=== PATIENT | male | born 1995 | race Caucasian/White ===

== ENCOUNTER 2016-07-24 19:44 | Emergency (ER) | payer SELFPAY ==
[~2016-07-24] VITALS: Ht 167.6 cm; Wt 62.0 kg
[2016-07-24 19:48] VITALS: Ht 167.6 cm; Wt 62.0 kg
[2016-07-24] MEDS ORDERED: LORAZEPAM 0.5 MG TAB PO ONE ×2 (20:30→22:30)
[2016-07-24 20:49] LABS: URINE BLOOD (Dip) POC Negative (NEGATIVE)
[2016-07-24 21:00] LABS: ADD SCAN DIFF NO
[2016-07-24 21:03] LABS: BASOPHIL # 0.1 10^3/ul (0.0-0.1); BASOPHILS % 0.6 % (0.0-2.0); EOSINOPHILS # 0.2 10^3/ul (0.0-0.5); EOSINOPHILS % 2.6 % (0.0-7.0); HEMOGLOBIN 16.3 g/dl (14.0-18.0); LYMPHOCYTES # 2.8 10^3/ul (0.8-2.9); LYMPHOCYTES % 36.7 % (15.0-51.0); MEAN CORPUSCULAR HEMOGLOBIN 30.5 pg (29.0-33.0); MEAN CORPUSCULAR VOLUME 89.9 fl (82.0-101.0); MEAN PLATELET VOLUME 11.7 fl (7.4-10.4); MONOCYTE # 0.5 10^3/ul (0.3-0.9); MONOCYTES % 6.6 % (0.0-11.0); NEUTROPHIL # 4.1 10^3/ul (1.6-7.5); NEUTROPHILS % 53.1 % (39.0-77.0); PLATELET COUNT 241 10^3/UL (140-415); RED BLOOD COUNT 5.34 10^6/ul (4.70-6.10); WHITE BLOOD COUNT 7.7 10^3/ul (4.8-10.8)
[2016-07-24 21:12] LABS: CHLORIDE 99 mmol/L (97-110); POTASSIUM 3.6 mmol/L (3.5-5.1); SODIUM 141 mmol/L (135-144)
[2016-07-24 21:13] LABS: INR 1.02; PROTIME 13.4 Sec (12.2-14.2)
[2016-07-24 21:14] LABS: CREATININE 0.78 mg/dl (0.61-1.24); PARTIAL THROMBOPLASTIN TIME 30.2 Sec (25.0-35.0)
[2016-07-24 21:15] LABS: ANION GAP 18 (8-16); BLOOD UREA NITROGEN 15 mg/dl (7-20); CARBON DIOXIDE 28 mmol/L (21-31); GLUCOSE 111 mg/dl (70-220)
[2016-07-24 21:29] LABS: TROPONIN-I < 0.012 ng/ml (0.00-0.12)
--- NOTE | 2016-07-24 22:15 | RADRPT ---
PROCEDURE: XR Chest AP portable CLINICAL INDICATION: Chest pain TECHNIQUE: An AP portable radiograph of the chest was submitted. COMPARISON: None. FINDINGS: Support Hardware: None Cardiovascular: The cardiovascular silhouette appears unremarkable. Lung Judge: The lung judge appear clear with no nodule, alveolar infiltrate, or interstitial promi nence evident. Pleural Spaces: No pneumothorax or pleural effusion is identified. Osseous Structures: The osseous structures appear intact. Soft Tissues: The soft tissues appear unremarkable. IMPRESSION: Unremarkable portable chest. Physician Klaus Date Time Electronically viewed and signed by Abhinav Spence Physician on 07/24/2016 22:15 /
[2016-07-24] MEDS ORDERED: LIDOCAINE/MYLANTA 40 ML BTL PO ONE (22:30)
[2016-07-24 22:51] VITALS: BP 126/78; PULSE 100; RESP 16
--- NOTE | 2016-07-26 07:59 | ERD ---
ER Documentation Chief Complaint Date/Time DATE: 07/26/16 TIME: 07:47 Chief Complaint chest pain since this morning HPI This is a 21 year old male who presents to ED with neck tightness and anterior chest pain x 1 week. Patient states he has intermittent stabbing type pain to left sided sternal wall for the past week. He states pain is worse with lying down and is relieved by sitting up and standing. Pain is reproducible with palpation of sternal wall. Denies heart palpitations, chest pressure/tightness , cough, shortness of breath, difficulty breathing, weakness or fatigue. No nausea, vomiting, abdominal pain, flank pain or back pain. No jaw pain or arm numbness/tingling. No cough or fever. Denies ever having this fournier before. Does not know what initiated pain. Denies illegal drug use. ROS All systems reviewed and are negative except as per history of present illness. Allergies Allergies: Coded Allergies: No Known Allergy (Unverified , 01/31/14) PMhx/Soc Medical and Surgical Hx: pt denies Medical Hx, pt denies Surgical Hx History of Surgery: No Anesthesia Reaction: No Hx Neurological Disorder: No Hx Respiratory Disorders: No Hx Cardiac Disorders: No Hx Psychiatric Problems: No Hx Miscellaneous Medical Probl: No Hx Alcohol Use: Yes Hx Substance Use: No Hx Tobacco Use: No Smoking Status: Current every day smoker Physical Exam Vitals Vital Signs Date Time Temp Pulse Resp B/P Pulse Ox O2 Delivery O2 Flow Rate FiO2 07/24/16 22:51 100 16 126/78 100 Room Air 07/24/16 19:48 98.2 129 20 124/76 97 Physical Exam Const: NAD, alert Head: Atraumatic Eyes: Normal Conjunctiva ENT: Normal External Ears, Nose and Mouth. Neck: Full range of motion..~ No meningismus. Resp: Clear to auscultation bilaterally. No wheezing, rhonchi or crackles. Cardio: Regular rate and rhythm, no murmurs Abd: Soft, non tender, non distended. Normal bowel sounds Skin: No petechiae or rashes Back: No midline or flank tenderness Ext: No cyanosis, or edema Neur: Awake and alert Psych: Normal Mood and Affect Result Diagram: 07/24/16204907/24/162049 Results 24 hrs Laboratory Tests Test 07/24/16 20:49 07/24/16 20:50 Bedside Urine pH (LAB) 7.0 Bedside Urine Protein (LAB) Negative Bedside Urine Glucose (UA) Negative Bedside Urine Ketones (LAB) Negative Bedside Urine Blood Negative Bedside Urine Nitrite (LAB) Negative Bedside Urine Leukocyte Esterase (L Negative White Blood Count 7.710^3/ul Red Blood Count 5.3410^6/ul Hemoglobin 16.3g/dl Hematocrit 48.0% Mean Corpuscular Volume 89.9fl Mean Corpuscular Hemoglobin 30.5pg Mean Corpuscular Hemoglobin Concent 34.0g/dl Red Cell Distribution Width 12.0% Platelet Count 21752^3/UL Mean Platelet Volume 11.7fl Neutrophils % 53.1% Lymphocytes % 36.7% Monocytes % 6.6% Eosinophils % 2.6% Basophils % 0.6% Nucleated Red Blood Cells % 0.0/100WBC Neutrophils # 4.110^3/ul Lymphocytes # 2.810^3/ul Monocytes # 0.510^3/ul Eosinophils # 0.210^3/ul Basophils # 0.110^3/ul Nucleated Red Blood Cells # 0.010^3/ul Prothrombin Time 13.4Sec Prothrombin Time Ratio 1.0 INR International Normalized Ratio 1.02 Activated Partial Thromboplast Time 30.2Sec Sodium Level 141mmol/L Potassium Level 3.6mmol/L Chloride Level 99mmol/L Carbon Dioxide Level 28mmol/L Anion Gap 18 Blood Urea Nitrogen 15mg/dl Creatinine 0.78mg/dl Glucose Level 111mg/dl Calcium Level 10.0mg/dl Troponin I < 0.012ng/ml Current Medications Medications (Trade) Dose Ordered Sig/Nathalia Route PRN Reason Start Time Stop Time Status Last Admin Dose Admin Lorazepam (Ativan) 0.5 mg ONCE ONCE PO 07/24/16 20:30 07/24/16 20:31 DC 07/24/16 20:38 Lorazepam (Ativan) 0.5 mg ONCE ONCE PO 07/24/16 22:30 07/24/16 22:31 DC 07/24/16 22:43 Miscellaneous Medication (Gi Cocktail (2)) 40 ml ONCE ONCE PO 07/24/16 22:30 07/24/16 22:31 DC 07/24/16 22:43 Procedures/MDM Patient: CARLOS ARREGUIN : 1995 Age: 21 Sex: M MR #: [id number] [facility] #: [id number] DOS: 07/24/162020 Ordering MD: BROOKE PARKS NP [facility] Room/Bed: PROCEDURE: XR Chest AP portable CLINICAL INDICATION: Chest pain TECHNIQUE: An AP portable radiograph of the chest was submitted. COMPARISON: None. FINDINGS: Support Hardware: None Cardiovascular: The cardiovascular silhouette appears unremarkable. Lung Brito: The lung brito appear clear with no nodule, alveolar infiltrate, or interstitial prominence evident. Pleural Spaces: No pneumothorax or pleural effusion is identified. Osseous Structures: The osseous structures appear intact. Soft Tissues: The soft tissues appear unremarkable. IMPRESSION: Unremarkable portable chest. MDM: 21 year old male presents to ED with neck tightness and left sided anterior chest wall pain. Chest pain is reproducible to palpation. Normal lung and heart sounds on physical exam. Physical exam is unremarkable. Patient is calm and cooperative throughout ED visit. Labs drawn per chief of staff. Patient given Ativan 0.5mg po. Labs are unremarkable. Troponin negative. No anemia or electrolyte imbalance. CXR reviewed by radiologist as unremarkable. EKG reviewed by Norah Coto as NSR. No ST elevation. Upon reassessment, patient states chest pain has completely resolved and neck tightness has improved however not resolved completely. Patient given another dose of Ativan 0.5mg po and gi cocktail. Patient remains alert and hemodynamically stable. No s/s respiratory distress. No cough or fever. No difficulty swallowing or drooling. Patient is talking in complete sentences. Low suspicion for acute NE, pneumothorax, pneumonia or pleural effusion. Diagnosis is likely chest pain, musculoskeletal. Patient is appropriate for outpatient management and instructed to return to ED for any new or worsening symptoms. Patient verbalizes understanding. All questions answered at discharge. Departure Diagnosis: Primary Impression: Chest pain Additional Impression: Anxiety Condition: Stable Patient Instructions: Anxiety Reaction, Chest Pain, Uncertain Cause Referrals: COMMUNITY CLINICS YOU HAVE RECEIVED A MEDICAL SCREENING EXAM AND THE RESULTS INDICATE THAT YOU DO NOT HAVE A CONDITION THAT REQUIRES URGENT TREATMENT IN THE EMERGENCY DEPARTMENT. FURTHER EVALUATION AND TREATMENT OF YOUR CONDITION CAN WAIT UNTIL YOU ARE SEEN IN YOUR DOCTORS OFFICE WITHIN THE NEXT 1-2 DAYS. IT IS YOUR RESPONSIBILITY TO MAKE AN APPOINTMENT FOR FOLOW-UP CARE. IF YOU HAVE A PRIMARY DOCTOR --you should call your primary doctor and schedule an appointment IF YOU DO NOT HAVE A PRIMARY DOCTOR YOU CAN CALL OUR PHYSICIAN REFERRAL HOTLINE AT IF YOU CAN NOT AFFORD TO SEE A PHYSICIAN YOU CAN CHOSE FROM THE FOLLOWING [facility] [address] [facility] [address] [facility] [address] [facility] [address] [facility] [address] [facility]. [facility] [address] [facility] YOU HAVE RECEIVED A MEDICAL SCREENING EXAM AND THE RESULTS INDICATE THAT YOU DO NOT HAVE A CONDITION THAT REQUIRES URGENT TREATMENT IN THE EMERGENCY DEPARTMENT. FURTHER EVALUATION AND TREATMENT OF YOUR CONDITION CAN WAIT UNTIL YOU ARE SEEN IN YOUR DOCTORS OFFICE WITHIN THE NEXT 1-2 DAYS. IT IS YOUR RESPONSIBILITY TO MAKE AN APPOINTMENT FOR FOLOW-UP CARE. IF YOU HAVE A PRIMARY DOCTOR --you should call your primary doctor and schedule and appointment IF YOU DO NOT HAVE A PRIMARY DOCTOR YOU CAN CALL OUR PHYSICIAN REFERRAL HOTLINE AT . IF YOU CAN NOT AFFORD TO SEE A PHYSICIAN YOU CAN CHOSE FROM THE FOLLOWING [facility]: [facility] [address] [place] [address] [facility] [address] [place] [address] [facility] [address] [place] [address] Additional Instructions: Return to ED for any high fever, chest pain, difficulty breathing, shortness breath, wheezing, vomiting, diarrhea, abdominal pain or any new or worsening symptoms. Call your primary care doctor TOMORROW for an appointment during the next 2-3 days.See the doctor sooner or return here if your condition worsens before your appointment time. BROOKE PARKS NP Jul 26, 2016 07:58
== END 2016-07-24 22:51 | disposition home or self-care (01) ==
LOC: FTE 19:44
DX: R07.9 Chest pain, unspecified (principal); F41.9 Anxiety disorder, unspecified; F17.210 Nicotine dependence, cigarettes, uncomplicated
CPT/HCPCS: 36415; 71010; 80048; 81003; 84484; 85025; 85610; 85730; 93005

== ENCOUNTER 2018-10-17 17:32 | Emergency (ER) | payer OTHER ==
[~2018-10-17] VITALS: Ht 170.2 cm; Wt 71.9 kg
[2018-10-17 17:38] VITALS: Ht 170.2 cm; Wt 71.9 kg
--- NOTE | 2018-10-17 19:04 | ERD ---
ER Documentation Chief Complaint Chief Complaint LOWER ABD PAIN X 1 MONTH , WORSE TODAY HPI There is a 23-year-old male patient presents emergency room with complaint of left lower quadrant abdominal pain x1 month. States he has been seen by his primary care doctor for the same thing and had blood work and cannot remember what the results were. Today he states the pain feels worse however no nausea, no vomiting, no fever, no dysuria, no testicular pain, no penile discharge. Patient states he had bowel movement yesterday, denies constipation, no diarrhea, no melena. ROS All systems reviewed and are negative except as per history of present illness. Allergies Allergies: Coded Allergies: No Known Allergy (Unverified , 01/31/14) PMhx/Soc Medical and Surgical Hx: pt denies Medical Hx, pt denies Surgical Hx History of Surgery: No Anesthesia Reaction: No Hx Neurological Disorder: No Hx Respiratory Disorders: No Hx Cardiac Disorders: No Hx Psychiatric Problems: No Hx Miscellaneous Medical Probl: No Hx Alcohol Use: No Hx Substance Use: No Hx Tobacco Use: No Smoking Status: Never smoker FmHx Family History: No diabetes, No coronary disease, No other Physical Exam Vitals Vital Signs Date Temp Pulse Resp B/P (MAP) Pulse Ox O2 O2 Flow FiO2 Time Delivery Rate 10/17/18 98.1 53 16 114/58 97 Room Air 20:35 (76) 10/17/18 98.3 76 18 128/61 99 17:38 (83) Physical Exam Const: No acute distress Head: Atraumatic Eyes: Normal Conjunctiva, PERRL ENT: Normal External Ears, Nose and Mouth. Pharynx pink, moist, no lesions or exudate Neck: Full range of motion. No meningismus. No lymphadenopathy Resp: Clear to auscultation bilaterally Cardio: Regular rate and rhythm, no murmurs Abd: Soft, tender @ LLQ, non distended. diminished bowel sounds Skin: No petechiae or rashes Back: No midline or flank tenderness, neg CVT Ext: No cyanosis, or edema Neur: Awake and alert, clear speech, steady gait Psych: Normal Mood and Affect Results 24 hrs Laboratory Tests Test 10/17/18 19:58 Bedside Urine pH (LAB) 6.5 Bedside Urine Protein (LAB) Negative Bedside Urine Glucose (UA) Negative Bedside Urine Ketones (LAB) Negative Bedside Urine Blood Negative Bedside Urine Nitrite (LAB) Negative Bedside Urine Leukocyte Esterase (L Negative Procedures/MDM PROCEDURES/MDM DIAGNOSTIC IMAGING: Read by radiologist. KUB Unremarkable abdomen radiographs without findings to help explain the patient's provided history. PROCEDURES: none LAB INTERPRETATION: Urine without evidence of hematuria or infection -Medications: Declined, no current pain, no nausea, no dyspepsia MDM: This is a 23 yo male patient who complains of LLQ pain x 1 mo. No other symptoms such as fever, radiating abdominal pain, melena, hematochezia, constipation or diarrhea. No nausea or vomiting. Pain not related to eating. States pain improves with BM. He denies current pain at time of exam. Last BM this morning that he describes as "normal." KUB negative for fecal impaction, bowel obstruction, or other intraabdominal etiology. The patient presents with abdominal pain without definite explanation found on evaluation today. No signs of obstruction, physical exam and history not suspicious for occult infection, appendicitis, malignancy, AAA. There are no signs of peritonitis or other life-threatening or serious etiology.The patient appears stable for discharge and has been instructed to return immediately if the symptoms worsen in any way, or in 8-12 hours if not improved for re- evaluation. The patient has been instructed to return if the symptoms worsen or change in any way. Patient has been instructed on increasing hydration, fiber, and physical activity. Patient has been provided with primary care resources and instructed to establish care with provider to monitor symptoms and possible referral to GI. DISPOSITION and PLAN: RX: none The patient has been discharge home to follow-up with community physician. Departure Diagnosis: Primary Impression: Abdominal pain Abdominal location: left lower quadrant Qualified Codes: R10.32 - Left lower quadrant pain Condition: Stable (ERASED) CHRISTIANO BLACK NP Oct 17, 2018 19:04
[2018-10-17 20:35] VITALS: BP 114/58; PULSE 53; RESP 16
== END 2018-10-17 20:36 | disposition home or self-care (01) ==
LOC: FTE 17:32
DX: R10.32 Left lower quadrant pain (principal)
CPT/HCPCS: 74018; 81003

== ENCOUNTER 2019-02-13 14:56 | Emergency (ER) | payer MEDICAID, OTHER ==
[~2019-02-13] VITALS: Ht 170.2 cm; Wt 68.4 kg
[~2019-02-13 14:56] MED LIST: ALBU18HF INHALATION; PRED20TA PO
[2019-02-13 15:35] VITALS: BP 125/72; PULSE 80; RESP 18; Ht 170.2 cm; Wt 68.4 kg
== END 2019-02-13 16:46 | disposition home or self-care (01) ==
LOC: FTE 14:56 → MERGE 14:56 → E/R 16:46
DX: R05 Cough (principal)
CPT/HCPCS: 71045; Z7502